=== PATIENT | female | born 2000 | race Caucasian/White ===

== ENCOUNTER 2020-06-12 22:15 | Emergency (ER) | payer SELFPAY ==
[~2020-06-12] VITALS: Ht 160 cm; Wt 113.8 kg
[2020-06-12 23:01] LABS: BILIRUBIN,URINE NEGATIVE (NEGATIVE); CLARITY,URINE CLEAR; COLOR,URINE YELLOW; GLUCOSE, URINE (UA) NEGATIVE (NEGATIVE); KETONES,URINE NEGATIVE (NEGATIVE); LEUKOCYTE ESTERASE ,URINE NEGATIVE (NEGATIVE); NITRITE,URINE NEGATIVE (NEGATIVE); PROTEIN,URINE NEGATIVE (NEGATIVE)
[2020-06-12 23:30] LABS: RBC,URINE 50-100 /HPF
--- NOTE | 2020-06-12 23:30 | ED Abdominal Pain ---
General Chief Complaint: Female Reproductive Stated Complaint: VAGINAL PAIN;POSSIBLE IUD PROBLEM Nursing Triage Note: C/O PAIN AND HEAVY BLEEDING FROM HER VAGINA. STATES SHE IS UNSURE IF IT IS HER PERIOD SINCE SHE IS IRREGULAR. QUESTIONS IF THE IUD IS IN THE WRONG PLACE. Sepsis Screen: No Definite Risk Source of Information: Patient History of Present Illness Date Seen by Provider: Jun 12, 2020 Time Seen by Provider: 22:29 Initial Comments PT ARRIVES VIA POV FROM HOME C/O VAGINAL BLEEDING AND PELVIC PAIN AND VAGINAL PAIN STATES SYMPTOMS BEGAN 4 DAYS AGO STATES SHE HAD IUD PLACED 2 WEEKS AGO [place]--PERIODS HAVE ALWAYS BEEN IRREGULAR. DOES NOT KNOW IF THIS IS HER REGULAR PERIOD AND SHE IS HAVING MENSTRUAL CRAMPS, OR NOT. PAIN IS WORSE WITH MOVEMENTS HAS NOT TAKEN ANYTHING FOR PAIN NO FEVER NO NAUSEA/VOMITING NO URINARY SYMPTOMS PCP: DR. GOLDSMITH Allergies and Home Medications Allergies Coded Allergies: No Known Drug Allergies (Unverified , 06/13/20) Home Medications Doxycycline Hyclate 100 Mg Tablet, 100 MG PO BID Prescribed by: JENIFER MEJÍA on 06/13/207 Naproxen 500 Mg Tablet.dr, 500 MG PO BID Prescribed by: JENIFER MEJÍA on 06/13/207 Patient Home Medication List Home Medication List Reviewed: Yes Review of Systems Review of Systems Constitutional: no symptoms reported Respiratory: No Symptoms Reported Cardiovascular: No Symptoms Reported Gastrointestinal: See HPI, Abdominal Pain Genitourinary: See HPI Musculoskeletal: no symptoms reported; No back pain Past Lzaqghh-Oaxfed-Llicrw Hx Past Med/Social Hx: Reviewed and Corrections made Patient Social History Alcohol Use: Rarely Uses Recreational Drug Use: Yes (THC) Drug of Choice: MARIJUANA Smoking Status: Current Everyday Smoker (1/2 PPD) Type Used: Cigarettes Recent Foreign Travel: No Contact w/Someone Who Travel: No Recent Infectious Disease Expo: No Recent Hopitalizations: No Physical Abuse: No Sexual Abuse: No Mistreated: No Fear: No Seasonal Allergies Seasonal Allergies: Yes Past Medical History Surgeries: No Respiratory: Yes Asthma Cardiac: No Neurological: No : No (UNK) Reproductive Disorders: Yes (IRREGULAR PERIODS) Female 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 oz. kg; 44.00 BMI Method: General Appearance: WD/WN, no apparent distress, obese, other (SMILING, WALKS UPRIGHT AND MOVES WITHOUT DIFFICULTY. DOES NOT APPEAR TO BE IN ANY DISCOMFORT OR DISTRESS. PLAYING ON PHONE THROUGHOUT ER STAY) Respiratory: normal breath sounds, no respiratory distress, no accessory muscle use Cardiovascular: regular rate, rhythm, no murmur Gastrointestinal: normal bowel sounds, non tender, soft Extremities: normal inspection Pelvic: normal external exam, normal adnexa, no cerv. motion tender, no masses; No discharge, No tender w/ cervical motion; tender uterus (MILD), vaginal bleeding, other (IUD STRINGS VISUALIZED, BUT DO NOT SEE ANY OTHER PART OF THE DEVICE. CERVIX IS OTHERWISE NORMAL AND NON-TENDER. ) Neurologic/Psychiatric: no motor/sensory deficits, alert, normal mood/affect Skin: normal color, warm/dry Progress/Results/Core Measures Results/Orders Lab Results Laboratory Tests Test 06/12/20 22:40 06/13/20 00:00 Range/Units Urine Color YELLOW Urine Clarity CLEAR Urine pH 6.0 5-9 Urine Specific [place] 1.020 1.016-1.022 Urine Protein NEGATIVE NEGATIVE Urine Glucose (UA) NEGATIVE NEGATIVE Urine Ketones NEGATIVE NEGATIVE Urine Nitrite NEGATIVE NEGATIVE Urine Bilirubin NEGATIVE NEGATIVE Urine Urobilinogen 0.2 < = 1.0 MG/DL Urine Leukocyte Esterase NEGATIVE NEGATIVE Urine RBC (Auto) 3+ H NEGATIVE Urine RBC 50-100 H /HPF Urine WBC 0-2 /HPF Urine Crystals PRESENT H /LPF Urine Amorphous Sediment RARE GISSELLE URATES H /LPF Urine Bacteria TRACE /HPF Urine Casts NONE /LPF Urine Mucus SMALL H /LPF Urine Culture Indicated NO Chlamydia DNA Probe Not Detected Not Detected Neisseria gonorrhoeae DNA Probe Not Detected Not Detected Micro Results Microbiology 06/13/20 Genital Culture - Preliminary, Resulted Usual Vaginal Emmie 06/13/20 AMISHA Preparation - Final, Resulted 06/13/20 Wet Prep - Final, Resulted My Orders Orders - JENIFER MEJÍA DO Urine Bedside (06/12/20 22:28) Ua Culture If Indicated (06/12/20 22:28) Neisseria Gonorrhea Swab (06/12/20 23:47) Chlam Dna Probe (06/12/20 23:47) Genital Culture (06/12/20 23:47) Wet Prep (06/12/20 23:47) Amisha Prep (06/12/20 23:47) Ketorolac Injection (Toradol Injection) (06/13/20 00:15) Ceftriaxone For Im Use (Rocephin For Im (06/13/20 00:15) Azithromycin Tablet (Zithromax Tablet) (06/13/20 00:15) Lidocaine 1% Inj 20 Ml (Xylocaine 1% Inj (06/13/20 00:15) Vital Signs/I&O 06/12/20 06/13/20 22:29 00:26 Temp 36.5 Pulse 102 80 Resp 18 18 B/P (MAP) 146/86 (106) 124/45 Pulse Ox 98 97 Blood Pressure Mean: 106 Departure Impression Primary Impression: Dysmenorrhea Additional Impression: RECENT IUD PLACEMENT Disposition: HOME, SELF-CARE Condition: Stable Departure-Patient Inst. Referrals: KEATON GOLDSMITH MD Patient Instructions: Intrauterine Devices (IUD), Menstrual Cramps (DC) Add. Discharge Instructions: LOTS OF CLEAR LIQUIDS FOLLOW UP WITH DR. GOLDSMITH IN 2-3 DAYS IF NO BETTER All discharge instructions reviewed with patient and/or family. Voiced understanding. Scripts Naproxen (Naproxen) 500 Mg Tablet. 500 MG PO BID, #20 TAB Prov: JENIFER MEJÍA DO 06/13/20 Doxycycline Hyclate (Doxycycline Hyclate) 100 Mg Tablet 100 MG PO BID, #20 TAB 0 Refills Prov: JENIFER MEJÍA DO 06/13/20 JENIFER MEJÍA DO Jun 12, 2020 23:30
[2020-06-12 23:31] LABS: BACTERIA,URINE TRACE /HPF; WBC,URINE 0-2 /HPF
[2020-06-12 23:32] LABS: AMORPHOUS SEDIMENT,UR RARE AMOR URATES /LPF
[2020-06-13] MEDS ORDERED: DOXY100T2 PO (00:08)
[2020-06-13] MEDS ORDERED: NAPR500T8 PO (00:08)
[2020-06-13] MEDS ORDERED: KETOROLAC 60 MG/2 ML VIAL IM ONE (00:15)
[2020-06-13] MEDS ORDERED: LIDOCAINE 1% INJ 20 ML 20 ML VIAL INJ ONE (00:15)
[2020-06-13] MEDS ORDERED: AZITHROMYCIN 250 MG TAB (ZITHROMAX) PO ONE (00:15)
[2020-06-13] MEDS ORDERED: cefTRIAXone 1,000 MG/2.86 ml vial (IM ONLY) IM SCH (00:15)
[2020-06-13 00:26] VITALS: BP 124/45
== END 2020-06-13 00:32 | disposition home or self-care (01) ==
LOC: ER 22:18
DX: N94.6 Dysmenorrhea, unspecified (principal); E66.9 Obesity, unspecified; F17.210 Nicotine dependence, cigarettes, uncomplicated; Z68.41 Body mass index [BMI] 40.0-44.9, adult; Z30.430 Encounter for insertion of intrauterine contraceptive device
CPT/HCPCS: 36415; 81000; 84703; 87070; 87077; 87205; 87210; 87491; 87591; 99284

== ENCOUNTER 2020-09-05 15:37 | Emergency (ER) | payer SELFPAY ==
[~2020-09-05] VITALS: Ht 160 cm; Wt 70.0 kg
[~2020-09-05 15:37] MED LIST: DOXY100T2 PO; NAPR500T8 PO
[2020-09-05] MEDS ORDERED: BIRTH CONTROL (15:58)
[2020-09-05] MEDS ORDERED: ONDANSETRON 4 MG/2 ML (SDV) Z0FRAN IV PRN (16:00)
[2020-09-05] MEDS ORDERED: ONDANSETRON 4 MG/2 ML (SDV) Z0FRAN IVP ONE (16:00)
[2020-09-05] MEDS ORDERED: NS IV 1000 ML 1,000 ML IV SCH (16:00)
[2020-09-05 16:06] LABS: BASOPHILS # (AUTO) 0.1 10^3/uL (0.0-0.1); BASOPHILS % (AUTO) 1 % (0-10); EOSINOPHILS # (AUTO) 0.3 10^3/uL (0.0-0.3); EOSINOPHILS % (AUTO) 3 % (0-10); HEMATOCRIT 37 % (35-52); HEMOGLOBIN 11.8 g/dL (11.5-16.0); LYMPHOCYTES # (AUTO) 3.5 10^3/uL (1.0-4.0); LYMPHOCYTES % (AUTO) 36 % (12-44); MEAN CORPUSCULAR HEMOGLOBIN 25 pg (25-34); MEAN CORPUSCULAR HGB CONC 32 g/dL (32-36); MEAN CORPUSCULAR VOLUME 79 fL (80-99); MEAN PLATELET VOLUME 9.2 fL (9.0-12.2); MONOCYTES # (AUTO) 0.5 10^3/uL (0.0-1.0); MONOCYTES % (AUTO) 6 % (0-12); NEUTROPHILS # (AUTO) 5.3 10^3/uL (1.8-7.8); NEUTROPHILS % (AUTO) 55 % (42-75); PLATELET COUNT 329 10^3/uL (130-400); WHITE BLOOD COUNT 9.7 10^3/uL (4.3-11.0)
[2020-09-05 16:08] LABS: BILIRUBIN,URINE NEGATIVE (NEGATIVE); CLARITY,URINE CLEAR; COLOR,URINE YELLOW; GLUCOSE, URINE (UA) NEGATIVE (NEGATIVE); KETONES,URINE NEGATIVE (NEGATIVE); LEUKOCYTE ESTERASE ,URINE 1+ (NEGATIVE); NITRITE,URINE NEGATIVE (NEGATIVE); PROTEIN,URINE 2+ (NEGATIVE)
[2020-09-05 16:14] LABS: ALBUMIN 4.1 GM/DL (3.2-4.5); CHLORIDE 107 MMOL/L (98-107); POTASSIUM 4.1 MMOL/L (3.6-5.0); SODIUM 138 MMOL/L (135-145)
[2020-09-05 16:15] LABS: CALCIUM 9.1 MG/DL (8.5-10.1)
--- NOTE | 2020-09-05 16:15 | ED Abdominal Pain ---
General Chief Complaint: Abdominal/GI Problems Stated Complaint: NAUSEA/VOMITTING Nursing Triage Note: PT STATES NVD FOR 2 DAYS Sepsis Screen: No Definite Risk Source of Information: Patient Exam Limitations: No Limitations History of Present Illness Date Seen by Provider: Sep 05, 2020 Time Seen by Provider: 16:15 Initial Comments To ER with c/o NVD x2-3 days with epigastric pain. 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 She smokes marijuana 1-2x a day for nausea relief. She has been living out near [place]. This pain nausea vomiting and diarrhea began after she caught cooked and ate at [employer]. Other household contacts who also ate the [employer] do not have any symptoms. Timing/Duration: 2-3 Days Severity/Quality: Moderate Location: Generalized Abdomen Radiation: No Radiation Associated Symptoms: Nausea/Vomiting Allergies and Home Medications Allergies Coded Allergies: codeine (Verified Allergy, Unknown, 09/05/20) Home Medications Cefuroxime Axetil 250 Mg Tablet, 250 MG PO BID Prescribed by: CINTHIA WEINER on 09/05/201653 Doxycycline Hyclate 100 Mg Tablet, 100 MG PO BID Prescribed by: JENIFER MEJÍA on 06/13/207 Naproxen 500 Mg Tablet.dr, 500 MG PO BID Prescribed by: JENIFER MEJÍA on 06/13/207 Ondansetron 8 Mg Tab.rapdis, 8 MG PO TID PRN for NAUSEA/VOMITING Prescribed by: CINTHIA WEINER on 09/05/201653 Patient Home Medication List Home Medication List Reviewed: Yes Review of Systems Review of Systems Constitutional: see HPI; No chills EENTM: No Symptoms Reported Respiratory: No Symptoms Reported Cardiovascular: No Symptoms Reported Gastrointestinal: See HPI, Abdominal Pain, Diarrhea, Nausea, Vomiting Genitourinary: No Symptoms Reported Musculoskeletal: no symptoms reported Past Qlzikne-Eglbfd-Xbdlma Hx Patient Social History Alcohol Use: Rarely Uses Drug of Choice: MARIJUANA Smoking Status: Current Everyday Smoker Type Used: Cigarettes Recent Infectious Disease Expo: No Recent Hopitalizations: No Seasonal Allergies Seasonal Allergies: Yes Past Medical History Surgeries: No Respiratory: Yes Asthma Cardiac: No Neurological: No : No Last Menstrual Period: Sep 05, 2020 Reproductive Disorders: Yes (IRREGULAR PERIODS) Female 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 oz. kg; 27.00 BMI Method: General Appearance: WD/WN, no apparent distress, obese (alert very pleasant) Neck: non-tender, full range of motion Respiratory: no respiratory distress, no accessory muscle use Cardiovascular: regular rate, rhythm, no murmur Gastrointestinal: normal bowel sounds, non tender, soft Extremities: normal range of motion, non-tender Neurologic/Psychiatric: alert, normal mood/affect, oriented x 3 Skin: normal color, warm/dry Progress/Results/Core Measures Results/Orders Lab Results Laboratory Tests Test 09/05/20 15:50 09/05/20 16:00 Range/Units Urine Color YELLOW Urine Clarity CLEAR Urine pH 6.0 5-9 Urine Specific [place] >=1.030 1.016-1.022 Urine Protein 2+ H NEGATIVE Urine Glucose (UA) NEGATIVE NEGATIVE Urine Ketones NEGATIVE NEGATIVE Urine Nitrite NEGATIVE NEGATIVE Urine Bilirubin NEGATIVE NEGATIVE Urine Urobilinogen 0.2 < = 1.0 MG/DL Urine Leukocyte Esterase 1+ H NEGATIVE Urine RBC (Auto) 3+ H NEGATIVE Urine RBC TNTC H /HPF Urine WBC 10-25 H /HPF Urine Squamous Epithelial Cells 5-10 /HPF Urine Crystals NONE /LPF Urine Bacteria MODERATE H /HPF Urine Casts NONE /LPF Urine Mucus NEGATIVE /LPF Urine Culture Indicated YES White Blood Count 9.7 4.3-11.0 10^3/uL Red Blood Count 4.75 3.80-5.11 10^6/uL Hemoglobin 11.8 11.5-16.0 g/dL Hematocrit 37 35-52 % Mean Corpuscular Volume 79 L 80-99 fL Mean Corpuscular Hemoglobin 25 25-34 pg Mean Corpuscular Hemoglobin Concent 32 32-36 g/dL Red Cell Distribution Width 15.0 H 10.0-14.5 % Platelet Count 329 130-400 10^3/uL Mean Platelet Volume 9.2 9.0-12.2 fL Immature Granulocyte % (Auto) 0 % Neutrophils (%) (Auto) 55 42-75 % Lymphocytes (%) (Auto) 36 12-44 % Monocytes (%) (Auto) 6 0-12 % Eosinophils (%) (Auto) 3 0-10 % Basophils (%) (Auto) 1 0-10 % Neutrophils # (Auto) 5.3 1.8-7.8 10^3/uL Lymphocytes # (Auto) 3.5 1.0-4.0 10^3/uL Monocytes # (Auto) 0.5 0.0-1.0 10^3/uL Eosinophils # (Auto) 0.3 0.0-0.3 10^3/uL Basophils # (Auto) 0.1 0.0-0.1 10^3/uL Immature Granulocyte # (Auto) 0.0 0.0-0.1 10^3/uL Sodium Level 138 135-145 MMOL/L Potassium Level 4.1 3.6-5.0 MMOL/L Chloride Level 107 98-107 MMOL/L Carbon Dioxide Level 22 21-32 MMOL/L Anion Gap 9 5-14 MMOL/L Blood Urea Nitrogen 9 7-18 MG/DL Creatinine 0.75 0.60-1.30 MG/DL Estimat Glomerular Filtration Rate > 60 BUN/Creatinine Ratio 12 Glucose Level 91 70-105 MG/DL Calcium Level 9.1 8.5-10.1 MG/DL Corrected Calcium 9.0 8.5-10.1 MG/DL Total Bilirubin 0.2 0.1-1.0 MG/DL Aspartate Amino Transf (AST/SGOT) 18 5-34 U/L Alanine Aminotransferase (ALT/SGPT) 20 0-55 U/L Alkaline Phosphatase 74 40-136 U/L Total Protein 7.3 6.4-8.2 GM/DL Albumin 4.1 3.2-4.5 GM/DL Lipase 59 8-78 U/L My Orders Orders - CINTHIA WEINER APRN Ondansetron Injection (Zofran Injectio (09/05/20 16:00) Ondansetron Injection (Zofran Injectio (09/05/20 16:00) Ns Iv 1000 Ml (Sodium Chloride 0.9%) (09/05/20 16:00) Cbc With Automated Diff (09/05/20 15:55) Comprehensive Metabolic Panel (09/05/20 15:55) Lipase (09/05/20 15:55) Us Gallbladder [id number] (09/05/20 15:55) Ed Iv/Invasive Line Start (09/05/20 15:55) Ua Culture If Indicated (09/05/20 16:03) Urine Culture (09/05/20 15:50) Ceftriaxone For Iv Use (Rocephin For I (09/05/20 16:30) Medications Given in ED Current Medications Medications Dose Ordered Sig/Ayesha Route Start Time Stop Time Status Last Admin Dose Admin Ceftriaxone Sodium 1000 mg/ Sterile Water 10 ml @ 200 mls/hr ONCE ONCE IV 09/05/20 16:30 09/05/20 16:32 DC 09/05/20 16:43 200 MLS/HR Ondansetron HCl 8 mg ONCE ONCE IVP 09/05/20 16:00 09/05/20 16:01 DC 09/05/20 16:06 8 MG Vital Signs/I&O 09/05/20 15:46 Temp 35.6 Pulse 83 Resp 18 B/P (MAP) 132/88 (103) Pulse Ox 98 O2 Delivery Room Air Blood Pressure Mean: 103 Diagnostic Imaging Diagonstic Imaging: Ultrasound Comments NAME: [facility] [facility] REC#: [id number] PT STATUS: REG ER : 2000 PHYSICIAN: CINTHIA WEINER APRN ADMIT DATE: 09/05/20/ER Draft Date of Exam:09/05/20 US GALLBLADDER [id number] PROCEDURE: US gallbladder. TECHNIQUE: Multiple real-time grayscale images were obtained over the right upper quadrant in various projections. INDICATION: Abdominal pain. COMPARISON: There is no prior study available for comparison. FINDINGS: There is no evidence for cholelithiasis or acute cholecystitis and the common bile duct is not dilated. The liver is not enlarged. There is no focal mass involving the liver and the biliary tree is not abnormally dilated. Spectral and color-flow imaging of the portal vein shows the vein is patent. The right kidney, the pancreas, the aorta and inferior vena cava are within normal limits. There is no mass or free fluid collection evident. IMPRESSION: 1. There is no evidence for an acute abnormality of the right upper quadrant. 2. If clinical concern regarding an underlying abnormality of the gallbladder exists and further imaging is desired, then a nuclear medicine hepatobiliary scan would be recommended. Dictated on workstation # [id number] Dict: 09/05/201644 Trans: 09/05/201648 [facility] [id number] Interpreted by: KOBY PASTOR MD Electronically signed by: Departure Impression Primary Impression: Urinary tract infection Additional Impression: Nausea and vomiting Disposition: HOME, SELF-CARE Condition: Stable Departure-Patient Inst. Decision time for Depature: 16:52 Referrals: NO,LOCAL PHYSICIAN (PCP/Family) Primary Care Physician Patient Instructions: Urinary Tract Infection, Adult ED Add. Discharge Instructions: 1. Take the antibiotics as directed starting tomorrow. Nausea medication as needed. Return to ER for any concerns. All discharge instructions reviewed with patient and/or family. Voiced understanding. Scripts Ondansetron (Ondansetron Odt) 8 Mg Tab.rapdis 8 MG PO TID PRN for NAUSEA/VOMITING, #10 TAB Prov: CINTHIA WEINER NECK PINNER 09/05/20 Cefuroxime Axetil (Cefuroxime) 250 Mg Tablet 250 MG PO BID, #10 TAB Prov: CINTHIA WEINER NECK PINNER 09/05/20 CINTHIA WEINER NECK PINNER Sep 05, 2020 16:15
[2020-09-05 16:17] LABS: GLUCOSE 91 MG/DL (70-105); TOTAL PROTEIN 7.3 GM/DL (6.4-8.2)
[2020-09-05 16:18] LABS: CARBON DIOXIDE 22 MMOL/L (21-32)
[2020-09-05 16:18] LABS: BACTERIA,URINE MODERATE /HPF; RBC,URINE TNTC /HPF
[2020-09-05 16:19] LABS: BILIRUBIN,TOTAL 0.2 MG/DL (0.1-1.0)
[2020-09-05 16:20] LABS: ALKALINE PHOSPHATASE 74 U/L (40-136); CREATININE SERUM 0.75 MG/DL (0.60-1.30); GFR ESTIMATED > 60
[2020-09-05 16:21] LABS: BUN/CREATININE RATIO 12
[2020-09-05 16:23] LABS: ALANINE AMINOTRANSFERASE 20 U/L (0-55)
[2020-09-05 16:24] LABS: LIPASE 59 U/L (8-78)
[2020-09-05] MEDS ORDERED: cefTRIAXone FOR IV USE 1,000 MG in WATER (STERILE) FOR INJECTION 10 ML IV ONE (16:30)
--- NOTE | 2020-09-05 16:49 | Diagnostic Imaging Report ---
PROCEDURE: US gallbladder. TECHNIQUE: Multiple real-time grayscale images were obtained over the right upper quadrant in various projections. INDICATION: Abdominal pain. COMPARISON: There is no prior study available for comparison. FINDINGS: There is no evidence for cholelithiasis or acute cholecystitis and the common bile duct is not dilated. The liver is not enlarged. There is no focal mass involving the liver and the biliary tree is not abnormally dilated. Spectral and color-flow imaging of the portal vein shows the vein is patent. The right kidney, the pancreas, the aorta and inferior vena cava are within normal limits. There is no mass or free fluid collection evident. IMPRESSION: 1. There is no evidence for an acute abnormality of the right upper quadrant. 2. If clinical concern regarding an underlying abnormality of the gallbladder exists and further imaging is desired, then a nuclear medicine hepatobiliary scan would be recommended. Dictated by: Dictated on workstation # [id number]
[2020-09-05] MEDS ORDERED: ONDA8TAB13 PO (16:54)
[2020-09-05] MEDS ORDERED: CEFU250T80 PO (16:54)
[2020-09-05 17:19] VITALS: BP 106/63
== END 2020-09-05 17:19 | disposition home or self-care (01) ==
LOC: EDUNIT# 15:37 → ER 15:39
DX: N39.0 Urinary tract infection, site not specified (principal); R11.2 Nausea with vomiting, unspecified; E66.9 Obesity, unspecified; F17.210 Nicotine dependence, cigarettes, uncomplicated; Z88.5 Allergy status to narcotic agent; Z68.27 Body mass index [BMI] 27.0-27.9, adult
CPT/HCPCS: 36415; 76705; 80053; 81000; 83690; 85025; 87077; 87088; 87186